=== PATIENT | male | born 1985 | race Hispanic/Latino ===

== ENCOUNTER 2017-04-30 23:11 | Emergency (ER) | payer SELFPAY ==
[~2017-04-30 23:11] MED LIST: GLIP5TAB11 PO
== END 2017-05-01 00:35 | disposition home or self-care (01) ==
LOC: EDH 23:11
DX: K12.1 Other forms of stomatitis (principal); J45.909 Unspecified asthma, uncomplicated; E11.9 Type 2 diabetes mellitus without complications; I10 Essential (primary) hypertension
CPT/HCPCS: 99281

== ENCOUNTER 2018-07-17 22:20 | Emergency (ER) | payer MEDICAID ==
[2018-07-17] MEDS ORDERED: ORPHENADRINE CITRATE 30 MG/ML ML ONE (23:28)
[2018-07-17] MEDS ORDERED: KETOROLAC TROMETHAMINE 30MG/ML ONE (23:28)
== END 2018-07-18 00:53 | disposition home or self-care (01) ==
LOC: EDH 22:20
DX: M54.42 Lumbago with sciatica, left side (principal); I10 Essential (primary) hypertension; E11.9 Type 2 diabetes mellitus without complications; J45.909 Unspecified asthma, uncomplicated
CPT/HCPCS: 96372 ×2; 99284; J1885; J2360

== ENCOUNTER 2018-08-04 11:51 | Emergency (ER) | payer MEDICAID | END 2018-08-04 12:46 | disposition home or self-care (01) | LOC: EDH 11:51 | DX: M54.16 Radiculopathy, lumbar region (principal); I10 Essential (primary) hypertension; E11.9 Type 2 diabetes mellitus without complications; J45.909 Unspecified asthma, uncomplicated | CPT/HCPCS: 99281 ==

== ENCOUNTER 2022-02-09 02:23 | Emergency (ER) | payer MEDICAID ==
[~2022-02-09] VITALS: Ht 170.2 cm; Wt 86.2 kg
[2022-02-09 02:25] VITALS: BP 136/99
== END 2022-02-09 05:16 | disposition left against medical advice (07) ==
LOC: EDH 02:23
DX: R05.9 Cough, unspecified (principal); Z53.21 Procedure and treatment not carried out due to patient leaving prior to being seen by health care provider